=== PATIENT | female | born 1950 | race Caucasian/White ===

== ENCOUNTER → 2018-03-15 | Outpatient (CLI) | payer MEDICARE | LOC: RAD 08:34 | PROVIDERS: ATTEND Family Medicine | DX: Z12.31 Encounter for screening mammogram for malignant neoplasm of breast (principal) | CPT/HCPCS: 77067 ==

== ENCOUNTER 2018-08-22 06:09 | Outpatient (CLI) | payer MEDICARE ==
[~2018-08-22] VITALS: Ht 177.8 cm; Wt 77.1 kg
== END 2018-08-22 15:54 | disposition home or self-care (01) ==
LOC: PREOP 06:09
PROVIDERS: ATTEND Surgery
DX: Z01.818 Encounter for other preprocedural examination (principal)

== ENCOUNTER 2018-08-24 11:19 | Day surgery (SDC) | payer MEDICARE ==
[~2018-08-24] VITALS: Ht 177.8 cm; Wt 77.1 kg
[2018-08-24] MEDS ORDERED: NS IV 500 ML 500 ML IV PRN (11:27)
[2018-08-24] MEDS ORDERED: fentaNYL INJECTION 100 MCG/2 ML AMP IVP ONE (11:30)
[2018-08-24] MEDS ORDERED: LIDOCAINE JELLY 2% 6 ML SYRINGE MM PRN (11:30)
[2018-08-24] MEDS ORDERED: MIDAZOLAM 2 MG/2 ML (VERSED) VIAL IVP ONE (11:30)
[2018-08-24] MEDS ORDERED: NS IV 500 ML 500 ML ONE (11:32)
[2018-08-24 11:35] VITALS: BP 131/67
--- NOTE | 2018-08-24 12:05 | Conscious Sedation/ASA ---
Conscious Sedation Pre-Proced Time 12:00 ASA Score 2 For ASA 3 and 4: Consider anesthesia and medical clearance. Also, for patients with a history of failed moderate sedation consider anesthesia. Airway Lungs Heart ASA score ASA 1: a normal healthy patient ASA 2: a patient with a mild systemic disease (mid diabetes, controlled hypertension, obesity ASA 3: a patient with a severe systemic disease that limits activity (angina , COPD, prior Myocardial infarction) ASA 4: a patient with an incapacitating disease that is a constant threat to life (CHF, renal failure) ASA 5: a moribund patient not expected to survive 24 hrs. (ruptured aneurysm) ASA 6: a declared brain- patient whose organs are being harvested. For emergent operations, add the letter E after the classification Mallampati Classification Grade 2 Sedation Plan Analgesia, Amnesia, Plan communicated to team members, Discussed options with patient/fam, Discussed risks with patient/fam The patient is an appropriate candidate to undergo the planned procedure, sedation, and anesthesia. The patient immediately re-assessed prior to indication. KATHARINA MURRAY MD Aug 24, 2018 12:05
--- NOTE | 2018-08-24 12:06 | Progress Note-Pre Operative ---
Pre-Operative Progress Note H&P Reviewed The H&P was reviewed, patient examined and no changes noted. Date Seen by Provider: Aug 24, 2018 Time Seen by Provider: 12:00 Date H&P Reviewed: Aug 24, 2018 Time H&P Reviewed: 12:00 Pre-Operative Diagnosis: screening colonsocopy KATHARINA MURRAY MD Aug 24, 2018 12:06
--- NOTE | 2018-08-24 12:08 | Discharge Inst-Surgical ---
D/C Lap Instructions-TERRI Follow Up 10 yrs Activity as tolerated High Fiber Diet 25g or more per day Avoid Alcohol, Caffeine, Spicy [place] and Acid foods. Drink 64 fluid oz or more of fluids per day. Symptoms to Report: Fever over 101 degree F, Nausea/Vomiting If any problems/questions: Contact your physician or go to Emergency Room KATHARINA MURRAY MD Aug 24, 2018 12:08
[2018-08-24] MEDS ORDERED: ONDANSETRON 4 MG/2 ML (SDV) Z0FRAN IV PRN (12:15)
[2018-08-24] MEDS ORDERED: ACETAMINOPHEN 325 MG TABLET PO PRN (12:15)
[2018-08-24] MEDS ORDERED: HYDROcodone/APAP 5 MG/325 MG (LORTAB) TAB PO PRN (12:15)
[2018-08-24] MEDS ORDERED: morphine INJ 10 MG/ML 1ML (SYR OR VIAL) IV PRN (12:15)
[2018-08-24] MEDS ORDERED: fentaNYL INJECTION 100 MCG/2 ML AMP ONE ×2 (13:58→14:25)
[2018-08-24] MEDS ORDERED: LIDOCAINE JELLY 2% 6 ML SYRINGE ONE (13:58)
[2018-08-24] MEDS ORDERED: MIDAZOLAM 2 MG/2 ML (VERSED) VIAL ONE ×4 (13:58)
--- NOTE | 2018-08-24 15:03 | Progress Note-Post Operative ---
Post-Operative Progess Note Surgeon (s)/Advertising Account Manager (s) Surgeon KATHARINA MURRAY MD Advertising Account Manager: none Pre-Operative Diagnosis screening colonsocopy Post-Operative Diagnosis chronic stage 2 ext and int hemorrhoids, small distal sigmoid HP polyp(2mm), mild sigmoid diverticulosis. Procedure & Operative Findings Date of Procedure 08/24/18 Procedure Performed/Findings Colonoscopy with bx. Anesthesia Type cs Estimated Blood Loss Estimated blood loss (mL): minimal Specimens/Packing Specimens Removed sigmoid polyp KATHARINA MURRAY MD Aug 24, 2018 15:03
[2018-08-24 15:05] VITALS: BP 97/54
[2018-08-24 15:35] VITALS: BP 99/63
[2018-08-24 15:43] VITALS: BP 99/63
--- NOTE | 2018-08-24 19:06 | OPERATIVE REPORT ---
DATE OF SERVICE: 08/24/2018 ATTENDING PRIMARY CARE PHYSICIAN: Dr. Francesco Morfin. PREOPERATIVE DIAGNOSIS: Screening colonoscopy. POSTOPERATIVE DIAGNOSES: Mild chronic stage II external and internal hemorrhoids, small hyperplastic polyp of the distal sigmoid colon. Mild sigmoid diverticulosis. PROCEDURE: Colonoscopy with biopsy. SURGEON: Katharina Murray MD ANESTHESIA: Conscious sedation. ESTIMATED BLOOD LOSS: Minimal. FINDINGS: Mild chronic stage II external and internal hemorrhoids, small hyperplastic polyp of the distal sigmoid colon. Mild sigmoid diverticulosis. DISPOSITION: The patient tolerated the procedure well. INDICATIONS: The patient is a 68-year-old female in need of a screening colonoscopy. She has not had a colonoscopy up to this point in her life. She states that she has had issues with constipation for many years. She does not report any red blood per rectum nor any dark tarry stools. She also does not report any family history of colon cancer. DESCRIPTION OF PROCEDURE: The patient was brought to the endoscopy suite, laid in the left lateral decubitus position. After adequate IV pain and sedative medications and conscious sedation anesthesia, a digital rectal examination was performed. Mild chronic stage II external and internal hemorrhoids were identified, which were not actively edematous nor inflamed and no bleeding. Normal sphincter tone was felt and there were no palpable masses. The endoscope was then intubated to the anus and rectum gently insufflated. The endoscope was then advanced through the valves of Tariq of the rectum with no polyps or any neoplasms identified. We then proceeded to the sigmoid colon. At the distal sigmoid colon, a small hyperplastic polyp, approximately 2 mm in size was identified. This was biopsied and destroyed using forceps and electrocautery. The endoscope was then advanced through the sigmoid colon where a mild sigmoid diverticulosis identified. We then proceeded to the remainder of the descending, transverse and ascending colon to the cecum. These segments were normal. Endoscope was then slowly withdrawn while taking a second look and suctioning of residual air with no additional findings. The patient tolerated the procedure well. We will recommend medical management with a high fiber diet with at least 20 to 30 grams of fiber per day as well as significant amounts of water on a daily basis to promote at least one soft stool on a daily basis as well. The polyp appears to be a benign appearing hyperplastic polyp and if this is confirmed by pathology, she may wait another 10 years for her next colonoscopy. Job ID: [id number] DocumentID: [id number] Dictated Date: 08/24/2018 14:46:17 [employer]bed Truck Driver Date: 08/24/2018 19:05:24 Dictated By: KATHARINA MURRAY MD
== END 2018-08-24 15:48 | disposition home or self-care (01) ==
LOC: ENDO 11:19
PROVIDERS: ATTEND Surgery
DX: Z12.11 Encounter for screening for malignant neoplasm of colon (principal); K63.5 Polyp of colon; K57.30 Diverticulosis of large intestine without perforation or abscess without bleeding; K64.1 Second degree hemorrhoids; Z88.0 Allergy status to penicillin; Z80.49 Family history of malignant neoplasm of other genital organs; Z80.1 Family history of malignant neoplasm of trachea, bronchus and lung

== ENCOUNTER → 2018-12-13 | Outpatient (CLI) | payer MEDICARE ==
--- NOTE | 2018-12-13 16:13 | Diagnostic Imaging Report ---
INDICATION: Low back pain extending to the left leg. TIME OF EXAM: 03:45 p.m. FINDINGS: AP view of the pelvis as well as multiple views of bilateral hips were obtained. Femoroacetabular alignment is normal bilaterally. Both femoral heads and necks appear to be intact. No fractures are seen. Mild superior joint space narrowing is noted bilaterally. Rami are intact. SI joints and symphysis are not widened. IMPRESSION: There is mild hip joint space narrowing bilaterally. No acute bony abnormality is detected. Dictated by: Dictated on workstation # [id number]
--- NOTE | 2018-12-13 16:28 | Diagnostic Imaging Report ---
INDICATION: Chronic low back pain extending into the left leg. TIME OF EXAM: 03:50 p.m. COMPARISON: No prior studies are available for comparison. FINDINGS: Three views of the lumbar spine were obtained. Curvature and alignment of the lumbar spine is normal. Vertebral body heights are well maintained. No acute compression fracture is seen. Disc spaces appear to be fairly well maintained. IMPRESSION: No acute bony abnormality is detected. Dictated by: Dictated on workstation # [id number]
== END ==
LOC: RAD 15:31
PROVIDERS: ATTEND Family Medicine
DX: M25.852 Other specified joint disorders, left hip (principal); M25.851 Other specified joint disorders, right hip; M54.5 Low back pain; M25.551 Pain in right hip; M25.552 Pain in left hip
CPT/HCPCS: 72100; 73523

== ENCOUNTER 2019-02-02 08:35 | Outpatient (RCR) | payer MEDICARE | END 2019-03-19 | disposition home or self-care (01) | PROVIDERS: ATTEND Family Medicine | DX: M25.552 Pain in left hip (principal) ==

== ENCOUNTER → 2019-03-20 | Outpatient (CLI) | payer MEDICARE ==
--- NOTE | 2019-03-20 12:09 | Diagnostic Imaging Report ---
INDICATION: Routine screening. COMPARISON: 03/15/2018. TECHNIQUE: 2D and 3D bilateral screening mammography was performed with CAD. FINDINGS: Scattered fibroglandular densities are identified bilaterally. Small bilateral circumscribed nodules are again noted and appear stable. No spiculated mass or malignant appearing microcalcifications are seen. The axillae are unremarkable. IMPRESSION: No mammographic features suspicious for malignancy are identified. ACR BI-RADS Category 2: Benign findings. Result letter will be mailed to the patient. Note: At least 10% of breast cancer is not imaged by mammography. Dictated by: Dictated on workstation # [id number]
== END ==
LOC: RAD 10:30
PROVIDERS: ATTEND Family Medicine
DX: Z12.31 Encounter for screening mammogram for malignant neoplasm of breast (principal)
CPT/HCPCS: 77067